=== PATIENT | male | born 1985 | race African-American/Black ===

== ENCOUNTER 2020-04-20 18:17 | Emergency (ER) | payer OTHER, BC ==
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
== END 2020-04-20 19:26 | disposition home or self-care (01) ==
LOC: MW.ED 18:17
DX: Z04.1 Encounter for examination and observation following transport accident (principal)
CPT/HCPCS: 99283

== ENCOUNTER 2024-07-15 10:23 | Day surgery (SDC) | payer BC ==
[~2024-07-15 10:23] MED LIST: Acetaminophen 1,000 MG in Premix Bag 1 BAG IV SCH; Albuterol 0.083% 2.5 MG/3 ML Neb Soln NEB PRN; HYDROmorphone 1 MG/ML Syringe IVPUSH PRN; Metoclopramide 10 MG/2 ML SDV IVPUSH PRN; Morphine 2 MG/ML SYRINGE IVPUSH PRN; Naloxone 0.4 MG/ML SDV IVPUSH PRN; Ondansetron 4 MG/2 ML SDV IVPUSH PRN; Phenylephrine HCl In 0.9% NaCl 1 MG/10 ML Syringe IVPUSH PRN; ceFAZolin 2 GM in Sodium Chloride 0.9% 50 ML IV ONE; fentaNYL 50 MCG/ML SDV IVPUSH PRN
[2024-07-15] MEDS: Pregabalin 75 MG Cap PO SCH (10:44)
[2024-07-15] MEDS ORDERED: Lidocaine 1% 20 ML MDV ONE (10:49)
[2024-07-15] MEDS ORDERED: Lidocaine 2% 11 ML Jelly Filled Syringe ONE ×2 (10:50→14:06)
[2024-07-15] MEDS ORDERED: Bupivacaine 0.25% 30 ML SDV ONE (10:50)
[2024-07-15] MEDS: Lactated Ringers 1,000 ML IV SCH (11:43)
[2024-07-15] MEDS ORDERED: fentaNYL 100 MCG/2 ML SDV ONE ×2 (11:45→14:06)
[2024-07-15] MEDS ORDERED: Propofol 200 MG/20 ML SDV ONE (11:45)
[2024-07-15] MEDS ORDERED: Rocuronium Bromide 50 MG/5 ML Syringe ONE ×2 (11:45→13:27)
[2024-07-15] MEDS ORDERED: Lidocaine 2% 5 ML SDV ONE (11:45)
[2024-07-15] MEDS ORDERED: Midazolam 1 MG/ML 2 ML SDV ONE (11:51)
[2024-07-15] MEDS ORDERED: Sodium Chloride 0.9% 20 ML ONE (12:31)
[2024-07-15] MEDS ORDERED: ceFAZolin 2 GM Vial ONE (12:31)
[2024-07-15] MEDS ORDERED: Ondansetron 4 MG/2 ML SDV ONE (12:49)
[2024-07-15] MEDS ORDERED: Dexamethasone 4 MG/ML 5 ML MDV ONE (12:50)
[2024-07-15] MEDS ORDERED: ePHEDrine 50 MG/ML SDV ONE (12:51)
== END 2024-07-15 15:30 | disposition home or self-care (01) ==
LOC: MW.SDS 10:23
PROVIDERS: ATTEND Surgery
DX: K64.8 Other hemorrhoids (principal); K64.4 Residual hemorrhoidal skin tags
CPT/HCPCS: 46948; 46999; A9270; J0665; J0690; J1100; J2003; J2250; J2405; J2704; J3010; J7120; 00902; J3490